=== PATIENT | female | born 1945 | race Caucasian/White ===

== ENCOUNTER 2025-01-12 12:00 | Outpatient (RCR) | payer MEDICARE, SELFPAY ==
--- NOTE | 2024-11-18 15:00 | HP.PTEVAL_ITS ---
Patient's Visit Information Visit Information Visit Information: ZOEY MARRERO is a 79 year old F referred to Physical Therapy by RENAE Bean with a diagnosis of R shoulder pain. Date of Evaluation: 11/18/24 Physical Therapist: Sukhdev Hermosillo DPT Visit Plan Frequency: 2x /Week Duration: 6 Weeks Plan: 1) US to R anterior shoulder, biceps/ supraspinatus 2) RTC/periscapular, biceps loading Progress as tolerated. Subjective Subjective: Pt. is here today for her initial evaluation with diagnosis of R shoulder pain. Pt. reports lifting a plant pot [place] and felt a pop and intense pain. Pt. reports no her biggest c/o is with sleeping. Pt. report is she doing a little better. Pt. is still having some issues with sleeping, and ALDs. She has refrained from a lot of lifting secondary to pain. Pt. denies N/T, but did have some initially in fingers. Pt. has done some AAROM on her own at home with some decent improvements. Pt. 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 Pain R shoulder: Pain Intensity (Out of 10): 2 Pain Intensity Range: 0 and 4 Objective Objective: POSTURE: Pt. has increased forward head posture. Pt. has rounded shoulders with increased thoracic kyphosis. PALPATION: Pt. has marked tenderness at proximal long head of biceps in groove and close to supraspinatus insertion. No scapular tenderness noted. NEURO: Pt. has normal sensation and DTR of BUEs. ROM: AROM: Pt. has full AROM, but does have some mild increase in symptoms with returning. MMT: Pt. descent strength 4+/5 throughout R shoulder, except 4/5 with ER and increase in R shoulder pain with ER testing. Special Tests R Shoulder Drop Sign - IS Test: Negative R Shoulder Empty Can - SS: Positive R Shoulder Neer - Impingement: Positive R Shoulder Speeds Test - Labrum/Biceps: Positive Balance/Special Test Scores Quick DASH Score: 45.4525 Goals Goal 1:: LTG: Pt. to be I with HEP. Goal Time Frame: 4-6 Weeks Goal 2:: LTG: Pt. to have no pain with sleeping. Goal Time Frame: 4-6 Weeks Goal 3:: LTG: Pt. to have symmetrical strength throughout BUEs without increase in R shoulder pain. Goal Time Frame: 6-8 Weeks Goal 4:: LTG: Pt. to complete all ADLs without increase in R shoulder pain. Goal Time Frame: 4-6 Weeks Rehabilitation Potential Physical Therapy Diagnosis: Pt. has signs and symptoms consistent with R shoulder pain. Pt. has + signs of RTC and bicep pathology. Pt. has good ROM, but some marked weakness and pain with most activities. Pt. would benefit from PT to address the above limitations progressing back to all activities without limitations. Anticipated Interventions Patient/Client Instruction: Educate patient on: Condition, Plan of Care, Risk Factors and Benefits of Fitness Program For the Purpose of:: To foster healthy habits, To improve decision making, To facilitate caregiver knowledge, To improve self management, To prevent re-injury and To improve ability to perform tasks related to life management Therapeutic Exercise to Include: Strength training, Postural training, Flexibilty training, Passive ROM, Active ROM and Scapular Strength/Stabilization For the Purpose of:: To decrease pain, To increase ROM, To improve nutrient del eneida to tissue, To increase oxygenation perfusion, To improve muscle performance and motor function, To improve ability to perform ADL's and To increase tolerance to activity/condition/position Manual Therapy Techniques to Include: Mobilization, Passive ROM and Soft tissue mobilization For the Purpose of:: To decrease pain, To decrease swelling/inflammation, To increase ROM, To improve nutrient delivery to tissue, To increase oxygenation perfusion, To improve muscle performance and motor function and To improve ability to perform ADL's Text: Thank you for the opportunity to evaluate your patient. For Medicare and Medicare HMO plans, please review the plan of care and approve it. It will need to be FAXED BACK to us at [phone] for Medicare purposes. For Medicare only, by signing this I certify the plan of care. Please let me know if there are questions or concerns regarding this plan of care. Physician Signature: Date:
--- NOTE | 2024-12-15 12:03 | HP.PTREVAL ---
Re-Evaluation Intro: Rafael Diaz, VALERY-C, It has been my pleasure to treat ZOEY MARRERO over the last 9 visits for R shoulder pain. Please see the progress note below for an update on the physical therapy plan of care! Subjective Subjective: I am almost 100%, but I still get pain with certain movements Objective Objective/Function: R shoulder pain ranges from 0-5/10 R shoulder MMT: R shoulder 4-/5 while L shoulder 5/5 throughout Pt is still very limited with R shoulder secondary to pain and weakness Plan Plan Plan: Recheck or discharge in one month Balance/Gait/Functional tests Balance/Special Test Scores Quick DASH Score: 34.0900 Goals Goals Goal 1:: LTG: Pt. to be I with HEP. Goal Time Frame: 4-6 Weeks Goal Progress: Goal Met Goal 2:: LTG: Pt. to have no pain with sleeping. Goal Time Frame: 4-6 Weeks Goal Progress: Progressing Goal 3:: LTG: Pt. to have symmetrical strength throughout BUEs without increase in R shoulder pain. Goal Time Frame: 6-8 Weeks Goal Progress: Progressing Goal 4:: LTG: Pt. to complete all ADLs without increase in R shoulder pain. Goal Time Frame: 4-6 Weeks Goal Progress: Goal Met Anticipated Interventions Anticipated Interventions Patient/Client Instruction: Educate patient on: Condition, Plan of Care, Risk Factors and Benefits of Fitness Program For the Purpose of:: To foster healthy habits, To improve decision making, To facilitate caregiver knowledge, To improve self management, To prevent re-injury and To improve ability to perform tasks related to life management Therapeutic Exercise to Include: Strength training, Postural training, Flexibilty training, Passive ROM, Active ROM and Scapular Strength/Stabilization For the Purpose of:: To decrease pain, To increase ROM, To improve nutrient delivery to tissue, To increase oxygenation perfusion, To improve muscle performance and motor function, To improve ability to perform ADL's and To increase tolerance to activity/condition/position Manual Therapy Techniques to Include: Mobilization, Passive ROM and Soft tissue mobilization For the Purpose of:: To decrease pain, To decrease swelling/inflammation, To increase ROM, To improve nutrient delivery to tissue, To increase oxygenation perfusion, To improve muscle performance and motor function and To improve ability to perform ADL's Re-Evaluation Ending Re-evaluation ending: Please do not hesitate to contact me at [phone] by phone or if you have questions or concerns regarding this new plan of care! Sincerely, Shay Concepcion, PT, ATC
--- NOTE | 2025-01-12 13:02 | HP.PTDCSUM ---
Discharge Summary D/C summary: It has been my pleasure to treat ZOEY MARRERO referred by RENAE Bean, with the diagnosis of R shoulder pain for a total of 10 visit(s). Discharge Date: Please see the following information for a summary of their discharge status. Subjective Subjective: I havent had any pain for over a week. Pain R shoulder: Pain Intensity (Out of 10): 0 Overall Improvement % Improvement: 100 Objective Objective/Function: R shoulder pain 0/10 R shoulder ROM is equal to L shoulder ROM R shoulder MMT: flex= 6, abd= 15, ER= 7, IR= 14 #F Goals Goal 1:: LTG: Pt. to be I with HEP. Goal Progress: Goal Met Goal 2:: LTG: Pt. to have no pain with sleeping. Goal Progress: Progressing Goal 3:: LTG: Pt. to have symmetrical strength throughout BUEs without increase in R shoulder pain. Goal Progress: Progressing Goal 4:: LTG: Pt. to complete all ADLs without increase in R shoulder pain. Goal Progress: Goal Met Plan Plan: Discharge to [facility] D/C Information d/c sentence: If there are questions or concerns regarding this patient's physical therapy, please feel free to call me at [phone]. Thank you for the referral of this patient. Sincerely, Shay Concepcion, PT, ATC Balance/Gait/Functional tests Balance/Special Test Scores Quick DASH Score: 11.3625 Improvement % Improvement: 100
== END 2025-01-12 19:00 | disposition home or self-care (01) ==
LOC: PT 12:00
PROVIDERS: Referring Provider Nurse Practitioner Primary Care; Visit Provider Nurse Practitioner Primary Care
DX: M25.511 Pain in right shoulder (principal)
CPT/HCPCS: 97035; 97110; 97161; 97530

== ENCOUNTER → 2025-10-17 | Outpatient (CLI) | payer SELFPAY ==
[2025-10-17 12:38] LABS: SERUM TEARS COLLECTION SPECIMEN PROCESSED
== END | disposition home or self-care (01) ==
LOC: LAB 10:33
PROVIDERS: Referring Provider Ophthalmology; Visit Provider Ophthalmology
DX: H04.123 Dry eye syndrome of bilateral lacrimal glands (principal)